=== PATIENT | female | born 1985 | race Caucasian/White ===

== ENCOUNTER → 2016-07-25 | Outpatient (CLI) | payer OTHER | LOC: CT 09:00 | DX: R51 Headache (principal) | CPT/HCPCS: 70450 ==

== ENCOUNTER 2016-07-28 21:10 | Emergency (ER) | payer OTHER ==
[2016-07-29 00:27] LABS: HEMOGLOBIN 12.2 gm/dl (12.3-15.3); RED BLOOD COUNT 4.4 M/UL (4.00-5.10)
[2016-07-29 00:44] LABS: BUN/CREATININE RATIO 14 (0-10)
== END 2016-07-29 01:00 | disposition home or self-care (01) ==
LOC: ER1 21:10
PROVIDERS: Radiology Radiation Oncology
DX: J32.9 Chronic sinusitis, unspecified (principal)
CPT/HCPCS: 36415; 80048; 81001; 84703; 85025; 96365; 96375; 96376; 99284; J1885; J2405; J2543; J7050

== ENCOUNTER 2020-04-27 19:48 | Emergency (ER) | payer OTHER ==
[~2020-04-27 19:48] MED LIST: NORFLEX 100 MG100 MG PO; PREDNISONE 50 M50 MG PO; PROTONIX40 M1 PO; Voltaren Gel 1 % TOP; ZOFRAN4 MG PO
[2020-04-28] MEDS ORDERED: IBUPROFEN600 MG PO (02:23)
[2020-04-28] MEDS ORDERED: CYCLOBENZAPRINE5 MG PO (02:23)
== END 2020-04-28 02:45 | disposition home or self-care (01) ==
LOC: ER1 19:48
DX: M25.512 Pain in left shoulder (principal); M54.5 Low back pain; F17.210 Nicotine dependence, cigarettes, uncomplicated; Z88.0 Allergy status to penicillin; Z88.5 Allergy status to narcotic agent; Z88.8 Allergy status to other drugs, medicaments and biological substances; V49.40XA Driver injured in collision with unspecified motor vehicles in traffic accident, initial encounter; Y92.410 Unspecified street and highway as the place of occurrence of the external cause
CPT/HCPCS: 71045; 72125; 72128; 72131; 73030; 84703; 96372; 99283; J1885